=== PATIENT | female | born 1965 | race Caucasian/White ===

== ENCOUNTER 2017-03-29 15:47 | Outpatient (CLI) ==
[2017-03-29 17:21] LABS: ALBUMIN 3.8 g/dL (3.4-5.0); BILIRUBIN,DIRECT 0.12 mg/dL (0.00-0.30); BILIRUBIN,TOTAL 0.3 mg/dL (0.00-1.20); TOTAL PROTEIN 7.5 g/dL (6.4-8.2)
[2017-03-31 07:19] LABS: HEPATITIS A ANTIBODY TOTAL Negative (Negative)
[2017-04-04 11:40] LABS: ANTI-NUCLEAR ANTIBODY SCREEN Positive (Negative); HEPATITIS B SURFACE ANTIBODY Non Reactive (.); SMOOTH MUSCLE (ACTIN) ANTIBODY 5 Units (0-19)
== END 2017-03-29 15:48 | disposition home or self-care (01) ==
LOC: LAB 15:47
PROVIDERS: ATTEND Internal Medicine Gastroenterology
DX: R79.89 Other specified abnormal findings of blood chemistry (principal)
CPT/HCPCS: 36415; 80076; 83516; 86038; 86705; 86706; 86708; 86709; 86803; 87340

== ENCOUNTER 2017-10-28 13:16 | Outpatient (CLI) | END 2017-10-28 13:17 | disposition home or self-care (01) | LOC: LAB 13:16 | PROVIDERS: ATTEND Emergency Medicine | DX: J06.9 Acute upper respiratory infection, unspecified (principal) ==

== ENCOUNTER 2018-05-23 08:54 | Outpatient (CLI) ==
--- NOTE | 2018-05-23 11:10 | DEXA ---
Exam: Bone densitometry DEXA scan performed on the [employer] device. Comparison: None available. Reason for exam: Osteopenia. FINDINGS: Imaging was obtained of the lumbar spine and deemed to be adequate for interpretation. Total BMD of the lumbar spine measures 1.118 grams per centimeter squared T-score -0.5. Z-score -0.1 WHO classification suggests normal bone mineral density Imaging was obtained of the left and right hips and deemed to be adequate for interpretation. The BMD of the left femoral neck measures 0.709 grams per centimeter squared T-score -2.4. Z-score -1.6 The MD the right femoral neck measures 0.768 grams per centimeter squared T-score -1.9. Z-score -1.2 The total mean of both hips BMD measures 0.810 grams per centimeter squared T-score -1.6. Z-score -1.1. Impression: WHO classification suggests normal bone mineral density in the lumbar spine with osteopenia in both h ips.
== END 2018-05-23 08:55 | disposition home or self-care (01) ==
LOC: RAD 08:54
PROVIDERS: ATTEND Physician Assistant
DX: Z12.31 Encounter for screening mammogram for malignant neoplasm of breast (principal); M85.9 Disorder of bone density and structure, unspecified
CPT/HCPCS: 77067